=== PATIENT | female | born 1960 | race African-American/Black ===

== ENCOUNTER → 2020-08-22 | Outpatient (CLI) | payer OTHER | LOC: CAT 09:47 → RAD 10:47 → CAT 10:47 | PROVIDERS: ATTEND Family Medicine | DX: Z13.6 Encounter for screening for cardiovascular disorders (principal); I25.10 Atherosclerotic heart disease of native coronary artery without angina pectoris; E78.00 Pure hypercholesterolemia, unspecified ==